=== PATIENT | male | born 1965 | race Caucasian/White ===

== ENCOUNTER → 2017-05-27 | Outpatient (CLI) | payer BC ==
[~2017-05-27] MED LIST: ACET-1256 PO; ASPI81TA28 PO; ATOR-26 PO; CARV12.5 PO; FURO40TA3 PO; LISI10TA PO; MULT-506 PO
== END | disposition home or self-care (01) ==
LOC: C.RDSM 11:52
PROVIDERS: ATTEND Family Medicine Sports Medicine
DX: M25.512 Pain in left shoulder (principal)

== ENCOUNTER 2017-08-17 18:28 | Emergency (ER) | payer BC ==
[~2017-08-17] VITALS: Ht 188 cm; Wt 131.0 kg
[2017-08-17 18:48] VITALS: TEMP 37.1; Ht 188 cm; Wt 131.0 kg
[2017-08-17] MEDS ORDERED: XYLOCAINE 1%/SOD BICARB 20 ML VIAL INFIL ONE (18:57)
[2017-08-17] MEDS ORDERED: OMG3 PO (19:00)
[2017-08-17] MEDS ORDERED: COEN100C11 PO (19:00)
[2017-08-17] MEDS ORDERED: LIDOCAINE/EPINEPHRINE 1% 20 ML VIAL INFIL ONE (19:15)
--- NOTE | 2017-08-17 20:27 | EMERGENCY ROOM VISIT NOTE ---
ED Visit Note First contact with patient: 19:00 CHIEF COMPLAINT: Right leg laceration HISTORY OF PRESENT ILLNESS: This 51-year-old male patient presents to the emergency department approximately one hour after cutting the medial aspect of the right lower leg. The patient states he was cutting brush with an ax, and new he was using the accident incorrectly, however continued to swing it. He states he realized he cut his leg and immediately went inside to have his attempt to help bandage it. The bleeding has not stopped. Denies weakness or numbness of the leg or foot. The patient rates the pain as throbbing and 0/10. The patient denies any other injuries. The patient's Tetanus shot is up to date. REVIEW OF SYSTEMS: A 6 system review of systems was completed with positives and pertinent negatives listed in the HPI. ALLERGIES: Erythromycin, pollen MEDICATIONS: Please see list. PMH: Open-heart surgery, hypertension SOCIAL HISTORY: Lives locally with family. He denies drug, alcohol, tobacco use. PHYSICAL EXAM: Vital Signs: Reviewed Nurse's notes, vital signs stable. GENERAL : This is a 51-year-old white male, in no acute distress, well-developed, well- nourished. SKIN: There is a 5 cm long laceration on the medial, anterior aspect of the right starkey. The edges gape apart with traction. There is no foreign material in the wound and it looks clean. There is moderate bleeding. No deep structures such as tendons, bones, or significant blood vessels are seen in the base of the wound. Normal strength and movement of the right knee, ankle, foot. Capillary refill less than 2 seconds. Normal sensation to light and sharp touch. EMERGENCY DEPARTMENT COURSE: I examined the patient. Verbal consent was obtained to perform the procedure. Using sterile technique the wound was cleansed with Betadine. The area was sterilely draped. 12 ml of 1% lidocaine with epinephrine was used to anesthetize the laceration on the right lower leg. Once the patient was anesthetized, the wound was copiously irrigated under pressure with sterile saline. The wound was explored and was as described above. The laceration was repaired using 11 simple interrupted 5-0 nylon sutures with the wound edges being well approximated. There was a superficial skin tear just above the laceration which was repaired with glue. The patient tolerated the procedure well. Hemostasis was achieved. The area was cleaned with sterile saline and dressed with bacitracin ointment and bandage. The patient was discharged home in good condition. I attest that I have personally reviewed the patient's current medication list. Patient was found to have normal blood pressure on screening and does not require follow-up. DIFFERENTIAL DIAGNOSIS: Laceration, contusion, fracture, sprain, strain, and others. DIAGNOSIS: Right lower leg laceration Current/Historical Medications Scheduled Aspirin (Aspirin Ec), 162 MG PO DAILY Atorvastatin (Lipitor), 80 MG PO DAILY Carvedilol (Coreg), 6.25 TAB PO BID Coenzyme Q10 (Ubidecarenone) (Coq-10), 100 MG PO QPM Fish Oil (Fish Oil), 1 GM PO QPM Furosemide (Lasix), 20 MG PO Q2D Lisinopril (Prinivil), 10 MG PO DAILY Multivitamin (Multivitamin), 1 TAB PO DAILY Allergies Coded Allergies: Erythromycin (Unverified Allergy, Unknown, HIVES, 08/17/17) POLLEN (Unverified Allergy, Unknown, CONGESTION, 08/17/17) RELATED TO HAY-FEVER Vital Signs Date Time Temp Pulse Resp B/P (MAP) Pulse Ox O2 Delivery O2 Flow Rate FiO2 08/17/17 18:48 37.1 64 16 144/90 98 Room Air Departure Information Impression Primary Impression: Laceration of lower extremity Dispostion Home / Self-Care Condition GOOD Referrals Karlee Rivera D.O. (PCP) Patient Instructions ED Laceration Ext Skin Glue, ED Laceration Ext Sutr Stap Tape, [facility] [employer] Additional Instructions You have received 11 sutures on your right starkey. These sutures are NOT dissolvable and WILL need to be removed by a health care provider in 8-10 days. You can return to the Emergency Department or contact your Primary Care Provider to have the sutures removed. Proper wound care is essential for adequate wound healing and infection prevention. You can shower and clean the wound with soap and water. Do not scour over the wound, pat dry with a towel. Do not submerse the wound (i.e. bathe or dish wash) until the sutures have been removed. You can use an antibiotic ointment with a dressing over the wound for the next 3-4 days. After this time you may leave the wound dry and open to the air. If crust develops over the wound you can use a Q-tip to apply a 1:1 peroxide:water solution to clean the wound. Look for signs of infection of the wound including: increased pain, swelling, foul discharge, streaking, or increased temperature. If any of these are noticed you should return to the Emergency Department for further assessment and treatment. As with any laceration you may have received nerve damage to the surrounding tissues. This damage may or may not be permanent. You should keep the area covered with sunscreen for the first 6 months to 1 year when at risk for exposure to help minimize scarring. You can also use scar reducing creams or Vitamin E oil to help minimize scarring. For pain control, you can use the following [id number] medicines (if >12 yo): Ibuprofen(Motrin, Advil) may be used for fever or pain. Use 600mg every six hours as needed. Take with food. Avoid using more than 2400mg in a 24 hour period. Do not use 2400mg per day for more than three consecutive days without physician direction. Prolonged inappropriate use can lead to stomach upset or ulcers. (AND/OR) Acetaminophen(Tylenol) may be used for fever or pain. Use 1000mg every six hours as needed. Avoid using more than 3000mg in a 24 hour period. Return to the emergency department if your symptoms worsen despite treatment course outlined above. Problem Qualifiers Primary Impression: Laceration of lower extremity Encounter type: initial encounter Laterality: right Qualified Codes: S81.811A - Laceration without foreign body, right lower leg, initial encounter
[2017-08-17 20:48] VITALS: BP 115/76; PULSE 62; O2SAT 98
== END 2017-08-17 20:57 | disposition home or self-care (01) ==
LOC: C.EDB 18:29 → C.EDD 20:57
DX: S81.811A Laceration without foreign body, right lower leg, initial encounter (principal); W26.8XXA Contact with other sharp object(s), not elsewhere classified, initial encounter; I10 Essential (primary) hypertension; Z79.82 Long term (current) use of aspirin; Z79.899 Other long term (current) drug therapy; Z98.890 Other specified postprocedural states; Z88.3 Allergy status to other anti-infective agents; Z91.09 Other allergy status, other than to drugs and biological substances